=== PATIENT | female | born 1960 ===

== ENCOUNTER 2019-11-24 09:30 | Day surgery (SDC) | payer OTHER | END 2019-11-24 14:40 | disposition home or self-care (01) | LOC: AMB-ENDOS 09:30 → ADM 09:45 → EDBD 09:45 → AMB-ENDOS 09:45 | PROVIDERS: ATTEND Surgery | DX: D12.2 Benign neoplasm of ascending colon (principal); D12.4 Benign neoplasm of descending colon; K64.8 Other hemorrhoids ==